=== PATIENT | female | born 1955 | race Caucasian/White ===

== ENCOUNTER 2018-08-19 14:46 | Emergency (ER) | payer OTHER, MEDICARE ==
--- NOTE | 2018-08-19 15:40 | EDPHY ---
H & P Time Seen by Provider: 08/19/18 15:40 HPI/ROS: Chief complaint. Headache, balance issues HPI. 63-year-old female presents emergency department with progressive balance issues for 1 month. She feels off balance with walking. She is legally blind and has difficulty walking finding or steps any way but she feels this is different. Occasionally slightly dizzy. She felt that was possibly due to ears being clogged and so 2 weeks ago she had her ears cleaned without improvement. She has had a mild headache for 2 weeks. She describes her headache as"I strain". She occasionally feels like she will fall in the shower in the morning. Otherwise she continues her regular activities during the day. She has had no fever or chest pain or shortness of breath or abdominal pain. No similar symptoms previously. ROS 10 systems were reviewed and negative with the exception of the elements mentioned in the history of present illness Past Medical/Surgical History: Legally blind Social History: , nonsmoker, no alcohol Smoking Status: Never smoked Physical Exam: General Appearance: Alert well-developed female mild distress vital signs significant for initial blood pressure 163/109 Eyes: Pupils are equal round reactive. There is possibly some rotatory nystagmus with the right eye.. ENT, Mouth: Mucous membranes are moist. Respiratory: There are no retractions, lungs are clear to auscultation. Cardiovascular: Regular rate and rhythm. Gastrointestinal: Abdomen is soft and nontender, no masses, bowel sounds normal. Neurological: Awake and alert, sensory and motor exams grossly normal. Speech is normal. Cranial nerves normal. There is no pronator drift. Evudko-mj-syaj is difficult as the patient is legally blind and has somewhat difficult time finding my finger. She feels that this is due to her vision and not inability to touch my finger directly. Poot-pg-lhzo is intact Skin: Warm and dry, no rashes. Musculoskeletal: Neck is supple nontender. Extremities symmetrical, full range of motion. Psychiatric: Patient is oriented X 3, there is no agitation. Constitutional: Initial Vital Signs Temperature (C) 36.8 C 08/19/18 14:51 Heart Rate 88 08/19/18 14:51 Respiratory Rate 16 08/19/18 14:51 Blood Pressure 163/109 H 08/19/18 14:51 O2 Sat (%) 97 08/19/18 14:51 O2 Delivery Mode Room Air Allergies/Adverse Reactions: No Known Allergies Allergy (Verified 08/19/18 14:54) Home Medications: Medication Instructions Recorded Estradiol 08/19/18 Medical Decision Making - Diagnostics EKG Interpretation: EKG interpreted by me shows normal sinus rhythm with normal interval and axis. QRS is normal there is LVH by voltage criteria. No significant ST elevation or depression. No arrhythmia. The rate is 73. Imaging Results: Imaging Impressions Head MRA 08/19/18 16:10 Impression: Negative MRA of the [place] of [place]. Findings were discussed with JACKELINE CHAVEZ MD at 18:52, on 08/19/2018. Brain MRI 08/19/18 16:33 Impression: 1. There is no MR evidence of an acute or subacute infarction. 2. There are numerous subcortical and deep white matter punctate hyperintense foci, with the above-mentioned differential considerations. Findings were discussed with JACKELINE CHAVEZ MD at 18:53, on 08/19/2018. MRA is normal MRI shows numerous sub and deep cortical white matter punctate hyperintense foci consistent with MS, postviral demyelination, chronic microvascular disease Procedures: IV normal saline, monitor Point of care testing for troponin is 0 ED Course/Re-evaluation: Re-evaluation at 7:30 p.m.. Patient is stable. The patient, her , and I discussed imaging lab EKG results. We discussed treatment plan including criteria for return importance of follow-up and further evaluation . She has expresses understanding and agreement Tried to get hold of her referring physician for follow-up and discussion but no phone call back. Differential Diagnosis: Considered CVA, brain tumor, TIA, intracranial bleeding. This possibly represents poorly controlled hypertension for many years - Data Points Laboratory Results: Laboratory Results 08/19/18 16:22 08/19/18 16:22 08/19/18 08/19/18 08/19/18 16:29 16:22 16:22 WBC 4.81 10^3/uL 10^3/uL (3.80-9.50) RBC 4.64 10^6/uL 10^6/uL (4.18-5.33) Hgb 14.6 g/dL g/dL (12.6-16.3) Hct 42.6 % % (38.0-47.0) MCV 91.8 fL fL (81.5-99.8) MCH 31.5 pg pg (27.9-34.1) MCHC 34.3 g/dL g/dL (32.4-36.7) RDW 12.1 % % (11.5-15.2) Plt Count 237 10^3/uL 10^3/uL (150-400) MPV 9.2 fL fL (8.7-11.7) Neut % (Auto) 59.7 % % (39.3-74.2) Lymph % (Auto) 31.6 % % (15.0-45.0) [place] % (Auto) 6.9 % % (4.5-13.0) Eos % (Auto) 1.0 % % (0.6-7.6) Baso % (Auto) 0.6 % % (0.3-1.7) Nucleat RBC Rel Count 0.0 % % (0.0-0.2) Absolute Neuts (auto) 2.87 10^3/uL 10^3/uL (1.70-6.50) Absolute Lymphs (auto) 1.52 10^3/uL 10^3/uL (1.00-3.00) Absolute Monos (auto) 0.33 10^3/uL 10^3/uL (0.30-0.80) Absolute Eos (auto) 0.05 10^3/uL 10^3/uL (0.03-0.40) Absolute Basos (auto) 0.03 10^3/uL 10^3/uL (0.02-0.10) Absolute Nucleated RBC 0.00 10^3/uL 10^3/uL (0-0.01) Immature Gran % 0.2 % % (0.0-1.1) Immature Gran # 0.01 10^3/uL 10^3/uL (0.00-0.10) Sodium 141 mEq/L mEq/L (135-145) Potassium 4.2 mEq/L mEq/L (3.3-5.0) Chloride 105 mEq/L mEq/L (97-110) Carbon Dioxide 26 mEq/l mEq/l (22-31) Anion Gap 10 mEq/L mEq/L (8-16) BUN 16 mg/dL mg/dL (7-23) Creatinine 0.6 mg/dL mg/dL (0.6-1.0) Estimated GFR > 60 Glucose 90 mg/dL mg/dL (70-100) Calcium 9.8 mg/dL mg/dL (8.5-10.4) POC Troponin I 0.00 ng/mL ng/mL (0.00-0.08) Medications Given: Discontinued Medications Acetaminophen (Tylenol) 650 mg PO EDNOW ONE Stop: 08/19/18 16:28 Last Admin: 08/19/18 16:42 Dose: 650 mg Sodium Chloride (Ns) 1,000 mls @ 0 mls/hr IV EDNOW ONE; Wide Open PRN Reason: Protocol Stop: 08/19/18 16:06 Last Admin: 08/19/18 16:25 Dose: 1,000 mls Point of Care Test Results: Chemistry 08/19/18 16:29 POC Troponin I 0.00 ng/mL ng/mL (0.00-0.08) Departure - Departure Disposition: Home, Routine, Self-Care Clinical Impression: Vertigo Condition: Good Instructions: Vertigo (ED) Additional Instructions: Call Dr. Carpio tomorrow for further evaluation I will give you the name of neurologist [facility] and please call them in the morning to arrange follow-up appointment Be very careful not to fall down Return for worsening symptoms Referrals: Antonella Carpio MD [Primary Care Provider] - 1 day without fail Devin Benedict MD [Medical Doctor] - 2-3 days, call for appt.
[2018-08-19] MEDS ORDERED: NS 1,000 ML IV ONE (16:05)
[2018-08-19] MEDS ORDERED: ACETAMINOPHEN 325 MG TAB PO ONE (16:27)
[2018-08-19 16:37] LABS: PLATELET COUNT 237 10^3/uL (150-400)
[2018-08-19] MEDS ORDERED: GADOBUTROL 10 ML VIAL IVP ONE ×2 (17:13→18:08)
--- NOTE | 2018-08-19 18:48 | CPEKG ---
Test Reason : OPEN Blood Pressure : / mmHG Vent. Rate : 073 BPM Atrial Rate : 074 BPM P-R Int : 149 ms QRS Dur : 103 ms QT Int : 409 ms P-R-T Axes : 082 061 062 degrees QTc Int : 451 ms Sinus rhythm Left ventricular hypertrophy Confirmed by Otto Martines ([id number]) on 08/19/2018 6:48:41 PM Referred By: Confirmed By:Otto Martines
[2018-08-19 19:47] VITALS: BP 124/84
== END 2018-08-19 19:41 | disposition home or self-care (01) ==
DX: R42 Dizziness and giddiness (principal); R51 Headache; E86.9 Volume depletion, unspecified; R03.0 Elevated blood-pressure reading, without diagnosis of hypertension; H54.8 Legal blindness, as defined in USA
CPT/HCPCS: 70544; 70553; 93005; 96361; 96374; 99285; A9585; 84484-PO

== ENCOUNTER → 2018-09-10 | Outpatient (CLI) | payer OTHER, MEDICARE ==
[~2018-09-10] MED LIST: IOPAMIDOL (ISOVUE 370) 100 ML BTL IV ONE
== END ==
LOC: FIMAGING 12:42
PROVIDERS: ATTEND Psychiatry & Neurology Neurology
DX: R42 Dizziness and giddiness (principal)
CPT/HCPCS: 70498; Q9967